=== PATIENT | male | born 1945 | race Caucasian/White ===

== ENCOUNTER 2016-12-04 16:19 | Emergency (ER) | payer OTHER ==
[~2016-12-04 16:19] MED LIST: ACET500CAP PO; ALLEGRA180 PO; CLORTIMAZOLE EX; DITROXL5 PO; FISH-EPA1000 MG PO; LOTRIMIN-MYCELE15 GM TOP; MELATONIN5 M1 PO; MOBIC15 MG PO; NORCO1 TA1 PO; PAIN RELIE PO; TOPXL25 PO; TRAZ50 PO; VITAMIN D31000 UNIT PO; ZYRTEC ALLGY10 MG PO
[2016-12-04 16:48] LABS: BASOPHILS 0.7 %; BASOPHILS ABSOLUTE 0.04 10/3/uL (0.0-0.16); EOSINOPHILS 3.3 %; HEMATOCRIT 44.9 % (40.0-51.0); HEMOGLOBIN 15.2 g/dL (13.6-17.8); LYMPHOCYTES 25.7 %; LYMPHOCYTES ABSOLUTE 1.57 10/3/uL (0.67-4.30); MEAN CORPUS HGB CONC 33.9 g/dL (32.0-36.0); MEAN CORPUSCULAR HEMOGLOB 30.8 pg (26.0-34.0); MEAN CORPUSCULAR VOLUME 90.9 fL (80-100); MEAN PLATELET VOLUME 10.6 fL (9.2-13.0); MONOCYTES 6.7 %; MONOCYTES ABSOLUTE 0.41 10/3/uL (0.21-1.20); NEUTROPHILS 63.6 %; NEUTROPHILS ABSOLUTE 3.89 10/3/uL (2.02-8.40); PLATELET COUNT 138 10/3/uL (150-400); RBC DISTRIBUTION WIDTH 12.8 % (12.0-16.0); RED CELL COUNT 4.94 10/6/uL (4.7-6.1); WHITE BLOOD CELLS 6.1 10/3/uL (4.5-10.5)
[2016-12-04 16:50] LABS: MANUAL DIFF NO %
[2016-12-04 17:04] LABS: A/G RATIO 1.3 (0.7-1.9); ALBUMIN 4.1 G/DL (3.5-5.0); ALKALINE PHOSPHATASE 75 U/L (45-117); BUN (BLOOD UREA NITROGEN) 27 MG/DL (6-23); CALCIUM, SERUM 9.2 MG/DL (8.5-10.4); CHLORIDE, SERUM 108 MMOL/L (96-112); CO2 (CARBON DIOXIDE) 25 MMOL/L (24-34); CREATININE 1.22 MG/DL (0.70-1.30); GFR AFRICAN AMERICAN 68 ML/MIN (>=60); GFR NON AFRICAN AMERICAN 59 ML/MIN (>=60); GLOBULIN 3.2 G/DL (2.5-4.1); GLUCOSE, SERUM 69 MG/DL (60-99); SGOT(AST) 20 U/L (5-40); SGPT(ALT) 24 U/L (5-65); SODIUM, SERUM 142 MMOL/L (135-148); TOTAL BILIRUBIN 0.6 MG/DL (0-1.2); TOTAL PROTEIN 7.3 G/DL (6.0-8.5)
[2016-12-04 20:20] LABS: TROPONIN I <0.02 NG/ML (<0.05)
== END 2016-12-04 21:38 | disposition home or self-care (01) ==
LOC: ER 16:19
PROVIDERS: Emergency Medicine
DX: R00.1 Bradycardia, unspecified (principal); I10 Essential (primary) hypertension; T43.215A Adverse effect of selective serotonin and norepinephrine reuptake inhibitors, initial encounter; K21.9 Gastro-esophageal reflux disease without esophagitis; Z85.46 Personal history of malignant neoplasm of prostate; Z87.891 Personal history of nicotine dependence; Z88.8 Allergy status to other drugs, medicaments and biological substances; Z79.899 Other long term (current) drug therapy
CPT/HCPCS: 71020; 80053; 83880; 84484; 85025; 87040; 93005; 99285